=== PATIENT | female | born 1950 | race Caucasian/White ===

== ENCOUNTER 2023-07-14 11:42 | Emergency (ER) | payer OTHER, BC ==
[2023-07-14 12:38] VITALS: BP 105/62; PULSE 122; TEMP 100.6; BMI 25.7
[2023-07-14 13:01] LABS: VENOUS BASE EXCESS 3.5 mmol/L (-2-2); VENOUS O2 SATURATION 86.2 % (70-80); VENOUS PH 7.208 (7.310-7.410)
[2023-07-14 13:02] LABS: VENOUS PCO2 84.2 mmHg (38-52)
[2023-07-14 13:04] LABS: HEMATOCRIT 25.2 % (32.4-45.2); HEMOGLOBIN 8.2 GM/dL (10.7-15.3); MCH 30.2 pg (25.7-33.7); MCHC 32.3 g/dl (32.0-36.0); MEAN CELL VOLUME 93.5 fl (80-96); MEAN PLT VOLUME 8.5 fl (7.5-11.1); PLATELET COUNT 345 10^3/uL (134-434); RDW 17.6 % (11.6-15.6); WHITE BLOOD COUNT 20.5 K/mm3 (4.0-10.0)
[2023-07-14 13:13] LABS: INR 2.04 (0.83-1.09)
[2023-07-14 13:16] LABS: ACTIVATED PTT 38.9 SECONDS (25.2-36.5)
[2023-07-14 13:32] LABS: POTASSIUM 4.9 mmol/L (3.5-5.1)
[2023-07-14 13:34] LABS: CALCIUM 8.9 mg/dL (8.5-10.1)
[2023-07-14 13:35] LABS: ALBUMIN 2.2 g/dl (3.4-5.0); BLOOD UREA NITROGEN 29.3 mg/dL (7-18)
[2023-07-14 13:38] LABS: CREATININE 0.7 mg/dL (0.55-1.3)
[2023-07-14 13:39] LABS: BILIRUBIN,TOTAL 1.4 mg/dL (0.2-1); TOT PROT 6.2 g/dl (6.4-8.2)
[2023-07-14 13:42] LABS: LACTIC ACID 2.2 mmol/L (0.4-2.0)
[2023-07-14] MEDS ORDERED: CEFEPIME 2 GM/100 ML BAG IVPB ONE (13:47)
[2023-07-14] MEDS: CEFEPIME HCL 2 GM VIAL (RESTRICTED TO ID) IVPB ONE (13:48)
[2023-07-14] MEDS: SODIUM CHLORIDE 0.9% 500 ML INFUS.BAG IV ONE (13:54)
[2023-07-14] MEDS ORDERED: ALBUTEROL SO4 2.5/IPRATROPIUM 0.5 INH SOL 3 ML VIAL.NEB. NEB ONE ×2 (14:28→15:17)
[2023-07-14] MEDS: ALBUTEROL SO4 2.5/IPRATROPIUM 0.5 INH SOL 3 ML VIAL.NEB. NEB ONE (14:29)
[2023-07-14] MEDS ORDERED: ACETAMINOPHEN INJECTION 100 ML IVPB ONE (14:29)
[2023-07-14] MEDS: ACETAMINOPHEN 1000 MG/100 ML BAG IVPB ONE (14:29)
[2023-07-14] MEDS: LINEZOLID 600 MG PREMIX BAG 600 MG in PREMIX 300 IVPB ONE (14:56)
[2023-07-14] MEDS: LACTATED RINGERS SOLUTION 1000 ML INFUS.BAG IV ONE (14:56)
[2023-07-14] MEDS ORDERED: NOREPINEPHRINE 0.9 % NACL 8 MG/250 ML BAG IVPB ONE (15:12)
[2023-07-14] MEDS ORDERED: EPINEPHrine 1:10,000 (P-F SYR) 1 MG/10 ML DISP.SYRIN ONE (15:24)
[2023-07-14] MEDS: NOREPINEPHRINE BITARTRATE/D5W 8 MG/250 ML BAG IVPB SCH (15:24)
[2023-07-14] MEDS ORDERED: ROCURONIUM BROMIDE 50 MG/5 ML SYRINGE ONE (15:44)
[2023-07-14] MEDS ORDERED: MIDAZOLAM HCL 5 MG/1 ML Single Dose Vial ONE (15:44)
[2023-07-14] MEDS: MIDAZOLAM HCL 5 MG/1 ML Single Dose Vial IVPUSH ONE (16:09)
[2023-07-14] MEDS: ROCURONIUM BROMIDE 50 MG/5 ML VIAL IV ONE (16:09)
[2023-07-14] MEDS: VASopressin 40 UNITS/100 ML BAG IV SCH (16:59)
[2023-07-14 19:28] VITALS: RESP 33
== END 2023-07-14 17:56 | disposition short-term general hospital (02) ==
LOC: JER 11:42
PROC: 0JHF3XZ Insertion of Tunneled Vascular Access Device into Left Upper Arm Subcutaneous Tissue and Fascia, Percutaneous Approach (ICD-10-PCS; principal; 2023-07-14)
DX: A41.9 Sepsis, unspecified organism (principal); R65.21 Severe sepsis with septic shock
CPT/HCPCS: 0241U-QW; 36415; 71045-TC-FY; 80053; 82803; 83605; 84484; 85025; 85610; 85730; 86850; 86900; 86901; 87040; 87186; 93005; 93010; 99285-25; J0131; J3490